=== PATIENT | female | born 1945 | race American Indian/Alaskan Native ===

== ENCOUNTER 2016-10-31 21:27 | Emergency (ER) | payer MEDICARE ==
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
[2016-11-01] MEDS ORDERED: NORCO 5/325 PO ONE (00:08)
[2016-11-01] MEDS ORDERED: MOTRIN PO ONE (00:08)
[2016-11-01] MEDS ORDERED: FUL-GLO OP ONE (00:52)
[2016-11-01] MEDS ORDERED: TETRACAINE 0.5% OU PRN (00:53)
[2016-11-01] MEDS ORDERED: HCTZ PO ONE (00:53)
[2016-11-01] MEDS ORDERED: APRESOLINE PO ONE (02:15)
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
[2016-11-01 04:34] VITALS: BP 139/85
== END 2016-11-01 04:30 | disposition home or self-care (01) ==
LOC: ED 21:27
DX: S02.80XA Fracture of other specified skull and facial bones, unspecified side, initial encounter for closed fracture (principal); S05.01XA Injury of conjunctiva and corneal abrasion without foreign body, right eye, initial encounter; I10 Essential (primary) hypertension; F32.9 Major depressive disorder, single episode, unspecified; E78.00 Pure hypercholesterolemia, unspecified; Z79.82 Long term (current) use of aspirin; V49.49XA Driver injured in collision with other motor vehicles in traffic accident, initial encounter; Y93.89 Activity, other specified; Y99.9 Unspecified external cause status; Y92.410 Unspecified street and highway as the place of occurrence of the external cause
CPT/HCPCS: 70450; 70486; 72125